=== PATIENT | female | born 1995 | race Hispanic/Latino ===

== ENCOUNTER 2018-11-04 17:21 | Emergency (ER) | payer OTHER, SELFPAY ==
[2018-11-04 18:16] LABS: #Lymphocytes 2.6 thou/uL (1.20-3.40); #Monocytes 0.5 thou/uL (0.11-0.59); %Basophils 0.6 % (0.0-1.0); %Eosinophils 0.6 % (0.0-10.0); %Monocytes 6.4 % (0.0-10.0); %Neutrophils 56.4 % (42.0-75.0); Hemoglobin 12.5 g/dL (12.0-16.0); Mean Corpuscular HGB CONC 35.3 g/dL (32.0-36.0); Mean Corpuscular Hemoglobin 31.6 pg (27.0-31.0); Mean Corpuscular Volume 89.3 fL (78.0-98.0); Mean Platelet Volume 8.5 fL (7.4-10.4); Platelet Count 204 thou/uL (130-400); RBC Distribution Width 12.4 % (11.5-14.5); Red Blood Cell (RBC) Count 3.97 mill/uL (4.20-5.40); White Blood Cell (WBC) Count 7.2 thou/uL (4.8-10.8)
[2018-11-04 18:18] LABS: Bilirubin Negative (Negative); Blood, Urine Negative (Negative); Clarity Clear (Clear); Glucose, Urine (Dipstick) Normal (Negative); Leukocyte Negative Leu/uL (Negative); Nitrite Negative (Negative); Protein, Urine (Dipstick) Negative (Neg-Trace); Urobilinogen Normal mg/dL (Less than 2)
[2018-11-04 18:33] LABS: ALT (SGPT) 18 U/L (8-55); AST (SGOT) 17 U/L (5-34); Albumin 4.6 g/dL (3.5-5.0); Alkaline Phosphatase 61 U/L (40-150); Anion Gap 11 mmol/L (10-20); BUN (Urea Nitrogen) 11 mg/dL (7.0-18.7); Bilirubin, Total 0.4 mg/dL (0.2-1.2); Calc. Creatinine Clearance 0 mL/min (70-130); Calcium 9.6 mg/dL (7.8-10.44); Carbon Dioxide 23 mmol/L (22-29); Chloride 104 mmol/L (98-107); Estimated GFR-MDRD Greater than 90; Globulin 2.9 g/dL (2.4-3.5); Glucose 84 mg/dL (70-105); Potassium 3.6 mmol/L (3.5-5.1); Protein, Total 7.5 g/dL (6.0-8.3); Sodium 134 mmol/L (136-145)
--- NOTE | 2018-11-04 19:33 | ULT ---
PELVIC ULTRASOUND: 11/04/18 Transabdominal and endovaginal ultrasound of pelvis performed. INDICATIONS: Pelvic pain. Early . FINDINGS: There is a gestational sac in the endometrial cavity. A yolk sac is identified. A tiny pole is seen with a crown-rump length indicating a 5 week, 6 day gestational age. cardiac activity is n ot confirmed with color Doppler with spectral analysis. Maternal ovaries are identified and appear unremarkable. Color Doppler with spectral analysis demonst rates flow to both ovaries. IMPRESSION: There is evidence of a gestational sac identified within the endometrial cavity. A tiny yolk sac iden tified. A tiny pole may be present. cardiac activity is not confirmed on this exam. Viabi lity is not confirmed. Recommend continued follow-up. Consider serial HCG levels and follow-up ultras ound as indicated. POS: NITA
== END 2018-11-04 20:09 | disposition home or self-care (01) ==
LOC: ERS 17:21
DX: O20.9 Hemorrhage in early pregnancy, unspecified (principal); Z3A.01 Less than 8 weeks gestation of pregnancy
CPT/HCPCS: 36415; 76856; 80053; 81003; 84702; 85025; 86900; 86901

== ENCOUNTER 2018-11-06 17:28 | Emergency (ER) | payer OTHER, SELFPAY | END 2018-11-06 19:13 | disposition home or self-care (01) | LOC: ERS 17:28 | DX: O20.0 Threatened abortion (principal); Z3A.01 Less than 8 weeks gestation of pregnancy | CPT/HCPCS: 36415; 84702; 99282 ==

== ENCOUNTER 2019-06-25 05:24 | Inpatient (IN) | payer OTHER ==
[2019-06-25] MEDS ORDERED: Butorphanol Tartrate 1 MG/ML VIAL ONE (05:55)
[2019-06-25] MEDS ORDERED: Methylergonovine 0.2 MG/ML VIAL IM PRN (06:05)
[2019-06-25] MEDS ORDERED: hydrALAZINE 20 MG/ML VIAL SLOW IVP PRN (06:05)
[2019-06-25] MEDS ORDERED: Docusate 100 MG CAP PO PRN (06:05)
[2019-06-25] MEDS ORDERED: Ondansetron PF 4 MG/2 ML Vial IVP PRN ×2 (06:05→07:57)
[2019-06-25] MEDS ORDERED: Ibuprofen 800 MG TAB PO PRN (06:05)
[2019-06-25] MEDS ORDERED: Promethazine HCl 25 MG/ML VIAL IM PRN ×2 (06:05→07:57)
[2019-06-25] MEDS ORDERED: Butorphanol Tartrate 1 MG/ML VIAL SLOW IVP PRN (06:05)
[2019-06-25] MEDS ORDERED: HYDROcodone/Acetaminophen 5/325 mg Tablet PO PRN ×2 (06:05)
[2019-06-25] MEDS ORDERED: Diphenoxylate HCl/Atropine Tablet PO PRN ×2 (06:05)
[2019-06-25] MEDS ORDERED: Lidocaine 1% (PF) 30 ML VIAL SC PRN (06:05)
[2019-06-25] MEDS ORDERED: NS / Oxytocin 40 units/1000ml 1,000 ML IV PRN (06:05)
[2019-06-25] MEDS ORDERED: Acetaminophen 500 MG TAB PO PRN (06:05)
[2019-06-25] MEDS ORDERED: Zolpidem Tartrate 5 MG TAB PO PRN (06:05)
[2019-06-25] MEDS ORDERED: Carboprost 250 MCG/ML AMP IM PRN (06:05)
[2019-06-25] MEDS ORDERED: Misoprostol 200 MCG TAB PR PRN (06:05)
[2019-06-25 06:09] VITALS: BMI 31.3
--- NOTE | 2019-06-25 06:10 | PDOC.LDHP ---
Labor and Delivery H&P HPI: 24 y/o at 38 and 4/7 weeks presents in labor with SROM. Trial of labor desired. Current gestational age (weeks): 38 Due date: 07/05/19 Grav: 1 Para: 0 Current complications: other (Mild Thrombocytopenia) Current medications: pre-cheryl vitamins Allergies/Adverse Reactions: Allergies Allergy/AdvReac Type Severity Reaction Status Date / Time No Known Allergies Allergy Verified 06/25/19 06:02 Social history: none - Physical Exam Vital signs reviewed and normal: yes General: NAD, resting Heart: RRR Lungs: CTAB Abdomen: NTTP Extremeties: no edema FHT: category 1 - Assessment L&D Assessment: term patient in labor - Plan Plan: admit to L&D
[2019-06-25] MEDS ORDERED: NS w/ Oxytocin 10 units 500 ML IV SCH (06:15)
[2019-06-25 06:20] LABS: Hemoglobin 13.3 g/dL (12.0-16.0); Mean Corpuscular HGB CONC 34.6 g/dL (32.0-36.0); Mean Corpuscular Hemoglobin 32.7 pg (27.0-31.0); Mean Corpuscular Volume 94.7 fL (78.0-98.0); Mean Platelet Volume 10.7 fL (7.4-10.4); Platelet Count 141 thou/uL (130-400); Red Blood Cell (RBC) Count 4.06 mill/uL (4.20-5.40); White Blood Cell (WBC) Count 11.1 thou/uL (4.8-10.8)
[2019-06-25] MEDS: Lactated Ringer's 1,000 ML IV SCH ×3 (06:22→17:33)
[2019-06-25] MEDS ORDERED: Fentanyl 4 mcg/Bup 0.1% Cadd 100 ML ONE ×2 (06:56→16:09)
[2019-06-25 06:59] LABS: HBSAg Index 0.23 S/CO (0-0.99); Hep B Surf Ag Non-Reactive S/CO (NonReactive); Syphilis Antibody Nonreactive (Nonreactive); Syphilis Antibody Index 0.04 S/CO (<1.00 Non-Reactive)
[2019-06-25] MEDS ORDERED: Acetaminophen 325 MG TAB PO PRN (07:57)
[2019-06-25] MEDS ORDERED: Lactated Ringer's 500 ML IV PRN (07:57)
[2019-06-25] MEDS ORDERED: Naloxone HCl 0.4 mg/ml Vial IVP PRN ×2 (07:57)
[2019-06-25] MEDS ORDERED: EPHEDRINE 25 MG/5 ML SYRINGE SLOW IVP PRN (07:57)
[2019-06-25] MEDS ORDERED: diphenhydrAMINE 50 MG/ML VIAL IVP PRN (07:57)
[2019-06-25] MEDS ORDERED: Communication Order-Pharmacy FS PRN (08:00)
[2019-06-25] MEDS ORDERED: Fentanyl 4 mcg/Bupivacaine 0.1% Cassette 100 ML EPIDURAL SCH (08:00)
[2019-06-25] MEDS: NS w/ Oxytocin 10 units 500 ML IV SCH (09:09)
[2019-06-25] MEDS ORDERED: Lidocaine 2% MPF 10 ML AMP (For Epidural Use) ONE (09:25)
[2019-06-25] MEDS ORDERED: Bicitra 30 ML UDCUP PO SCH (23:45)
[2019-06-25] MEDS ORDERED: Azithromycin 500 MG in Sodium Chloride 0.9% 250 ML 250 ML IVPB SCH (23:45)
[2019-06-25] MEDS ORDERED: CEFAZOLIN 2 GM in Premix Bag 1 BAG IVPB SCH (23:45)
[2019-06-25] MEDS ORDERED: Bicitra 30 ML UDCUP ONE (23:49)
[2019-06-26] MEDS ORDERED: Oxytocin 10 UNITS/ML VIAL ONE (00:02)
[2019-06-26] MEDS ORDERED: Ondansetron PF 4 MG/2 ML Vial ONE (00:02)
[2019-06-26] MEDS ORDERED: MORPHINE 5 MG/10 ML PF VIAL ONE (00:02)
[2019-06-26] MEDS ORDERED: L&D-Morphine 4 MG/ML VIAL SLOW IVP PRN (00:11)
[2019-06-26] MEDS ORDERED: HYDROmorphone 2 MG/ML VIAL SLOW IVP PRN (00:11)
[2019-06-26] MEDS ORDERED: Meperidine HCl/PF 25 MG/ML VIAL SLOW IVP PRN (00:11)
[2019-06-26] MEDS ORDERED: Ondansetron PF 4 MG/2 ML Vial IVP PRN (00:11)
[2019-06-26] MEDS ORDERED: Naloxone HCl 0.4 mg/ml Vial IVP PRN ×2 (00:11)
[2019-06-26] MEDS ORDERED: Promethazine HCl 25 MG/ML VIAL IM PRN ×2 (00:11→08:16)
[2019-06-26] MEDS ORDERED: Ondansetron HCl/PF 4 MG/2 ML Vial IVP PRN (00:11)
[2019-06-26] MEDS ORDERED: Naloxone HCl 0.4 mg/ml Vial IV PRN (00:11)
[2019-06-26] MEDS ORDERED: diphenhydrAMINE 50 MG/ML VIAL IVP PRN (00:11)
[2019-06-26] MEDS ORDERED: Promethazine HCl 25 MG SUPP PR PRN (00:11)
[2019-06-26] MEDS ORDERED: Communication Order-Pharmacy FS SCH (00:15)
[2019-06-26] MEDS ORDERED: Ketorolac Tromethamine 30 MG/ML VIAL IVP SCH (00:15)
[2019-06-26] MEDS ORDERED: Ketorolac Tromethamine 30 MG/ML VIAL ONE (03:08)
[2019-06-26] MEDS: Ketorolac Tromethamine 30 MG/ML VIAL IVP PRN ×2 (03:11→08:58)
[2019-06-26] MEDS: Lactated Ringer's 1,000 ML IV SCH (06:46)
[2019-06-26] MEDS: NS w/ Oxytocin 10 units 500 ML IV SCH (06:46)
[2019-06-26] MEDS ORDERED: Misoprostol 200 MCG TAB PR PRN (08:16)
[2019-06-26] MEDS ORDERED: hydrALAZINE 20 MG/ML VIAL SLOW IVP PRN (08:16)
[2019-06-26] MEDS ORDERED: Varicella virus, LIVE 0.5 ML VIAL SC ONE (08:16)
[2019-06-26] MEDS ORDERED: Measles/Mumps/Rubella 10 MCG/0.5 ML VIAL SC ONE (08:16)
[2019-06-26] MEDS ORDERED: Adacel (T-DAP) 0.5 ML SYRINGE IM ONE (08:16)
[2019-06-26] MEDS ORDERED: Lanolin Ointment 7 GM TUBE TOP PRN (08:16)
[2019-06-26] MEDS ORDERED: Methylergonovine 0.2 MG/ML VIAL IM PRN (08:16)
[2019-06-26] MEDS ORDERED: diphenhydrAMINE 25 MG CAP PO PRN (08:16)
[2019-06-26] MEDS ORDERED: Zolpidem Tartrate 5 MG TAB PO PRN (08:16)
[2019-06-26] MEDS ORDERED: NS / Oxytocin 40 units/1000ml 1,000 ML IV SCH (08:16)
[2019-06-26] MEDS: Prenatal Vitamin 1 TAB PO SCH (09:07)
[2019-06-26] MEDS: Docusate Calcium (SURFAK) 240 MG CAP PO SCH ×2 (09:07→21:30)
[2019-06-26] MEDS: Simethicone Chewable 80 MG TAB PO PRN ×2 (12:41→21:36)
[2019-06-26] MEDS: HYDROcodone/Acetaminophen 5/325 mg Tablet PO PRN ×3 (12:41→21:32)
[2019-06-26] MEDS: Ibuprofen 800 MG TAB PO SCH (15:32)
[2019-06-27] MEDS: HYDROcodone/Acetaminophen 5/325 mg Tablet PO PRN ×4 (01:26→20:30)
[2019-06-27] MEDS: Ibuprofen 800 MG TAB PO SCH ×3 (04:58→21:34)
[2019-06-27 05:58] LABS: Hemoglobin 8.9 g/dL (12.0-16.0); Mean Corpuscular HGB CONC 33.6 g/dL (32.0-36.0); Mean Corpuscular Volume 98.2 fL (78.0-98.0); Mean Platelet Volume 9.7 fL (7.4-10.4); Platelet Count 125 thou/uL (130-400); RBC Distribution Width 12.3 % (11.5-14.5); Red Blood Cell (RBC) Count 2.69 mill/uL (4.20-5.40); White Blood Cell (WBC) Count 18.7 thou/uL (4.8-10.8)
[2019-06-27] MEDS: Docusate Calcium (SURFAK) 240 MG CAP PO SCH ×2 (08:36→21:34)
[2019-06-27] MEDS: Simethicone Chewable 80 MG TAB PO PRN (08:36)
[2019-06-27] MEDS: Prenatal Vitamin 1 TAB PO SCH (08:36)
--- NOTE | 2019-06-27 13:13 | PDOC.PP ---
Post Progress Note Post Day #: 1 PO intake tolerated: yes Flatus: yes Ambulation: yes Vital Signs (12 hours) Temp Pulse Resp BP Pulse Ox 06/27/19 07:41 98.5 F 88 20 124/65 100 06/27/19 04:55 98.3 F 85 18 131/71 Weight Weight 155 lb - Physical Examination General: NAD Cardiovascular: no m/r/g, RRR Respiratory: clear to auscultation bilaterally, non-labored breathing Abdominal: + bowel sounds, lochia, no distention, appropriately TTP Extremities: negative homans (B) Skin: CS incision dry & intact, no rash Neurological: no gross focal deficits Psychiatric: A&Ox3, normal affect (DC tomorrow planned) Result Diagrams: 06/27/19 05:44 Additional Labs: Post Labs Blood Type A POSITIVE 06/25/19 06:10 Hep Bs Antigen Non-Reactive S/CO (NonReactive) 06/25/19 06:10
--- NOTE | 2019-06-27 20:34 | OP ---
DATE OF PROCEDURE: 06/26/2019 TIME: 0037 hours central daylight savings time. PREOPERATIVE DIAGNOSIS: Intrauterine at 38 weeks and four days with spontaneous onset of labor with spontaneous rupture of membranes, a trial of labor, and then failure to descend. POSTOPERATIVE DIAGNOSIS: Intrauterine at 38 weeks and four days with spontaneous onset of labor with spontaneous rupture of membranes, a trial of labor, and then failure to descend. PROCEDURE PERFORMED: Primary low-transverse section using a Pfannenstiel skin incision. FINDINGS: Viable male infant weighing 3322 g or 7 pounds 5 ounces. Apgars of 8 and 9. QUANTITATIVE BLOOD LOSS: 680 mL. COMPLICATIONS: None. DETAILS OF THE PROCEDURE: The patient was consented and taken back to the operating room where spinal anesthesia was found to be adequate. She was then prepped and draped in the normal sterile fashion. A timeout was performed by the entire operative team. The incision was then marked with a marking pen tested using sharp pickups. An incision was then made with a scalpel. The incision was carried through the adipose tissue down to the underlying rectus fascia using both sharp dissection as well as cautery. Once the fascia was identified, it was incised in the midline and then the fascial incision was carried through in both lateral directions using sharp as well as cautery dissection techniques. Next, the superior aspect of the rectus fascia was grasped with 2 Miroslava clamps, which was tented up and the rectus muscles were dissected off using blunt dissection as well as cautery dissection. Similarly, the inferior aspect of the fascial incision was grasped with 2 Miroslava clamps, tented up and the rectus muscles were dissected off bluntly as well as sharply. Next, the rectus muscles were in the midline and the peritoneum identified. The peritoneum was then carefully grasped with 2 hemostats and entered sharply. The peritoneal incision was extended superiorly and inferiorly and bladder blade was placed in the lower abdomen. At this point, the uterus was identified and the bladder flap was then developed using pickups with teeth as well as Metzenbaum scissors in both lateral directions. The bladder flap was then dissected downwards using the corn husker machine operator's finger as well as Metzenbaum scissors. The bladder blade was replaced. The lower uterine segment was then identified and entered sharply using a clean scalpel. The uterine incision was then dissected downwards until thin layer of muscle remained and this was entered bluntly using a hemostat to avoid any injury to the baby. The uterine incision was then stretched using two fingers in both lateral directions. An amniotomy was performed artificially using a hemostat and the baby was delivered using fundal pressure in a gentle fashion. Once out, the baby's mouth and nose were bulb suctioned, cord clamped and cut, and the baby was handed to waiting attendants. Next, the uterus was exteriorized, cleared of all clots and debris and the uterine incision was repaired with #1 Monocryl in a running locking fashion. A 2nd suture of the same type was used to obtain complete hemostasis at the uterine incision. The bladder flap was reapproximated using 3-0 Monocryl. Next, patient's left and right adnexa were inspected and appeared to be within normal limits. The posterior cul-de-sac was blotted dry and hemostasis assured. One more look at the uterine incision demonstrated hemostasis. Next, the uterus was replaced back within the abdomen. The peritoneum was reapproximated using 2-0 Monocryl without difficulty. The rectus muscles were then allowed to come back together and 0 chromic was used to aid in reapproximation of the muscle as necessary. The rectus fascia was then reapproximated in a running fashion using 0 Vicryl suture. The adipose tissue was then examined and appeared to be well approximated without any obvious separations. Finally, the skin was reapproximated with 3-0 Monocryl on a Wei needle without difficulty and Dermabond adhesive was applied to the skin. Once the glue was dry, the drapes were removed and the patient was transferred to an ambulatory bed where she was taken to recovery awake and in stable condition. Sponge, lap, and needle counts were correct x3. Job ID: [id number]
[2019-06-28] MEDS: HYDROcodone/Acetaminophen 5/325 mg Tablet PO PRN (01:09)
[2019-06-28] MEDS: Ibuprofen 800 MG TAB PO SCH (05:05)
[2019-06-28] MEDS: Prenatal Vitamin 1 TAB PO SCH (08:47)
[2019-06-28] MEDS: Docusate Calcium (SURFAK) 240 MG CAP PO SCH (08:47)
[2019-06-28 11:57] VITALS: BP 126/74; TEMP 98.1
== END 2019-06-28 13:35 | disposition home or self-care (01) | DRG 788 ==
LOC: L&D/OP 05:24 → L&D 07:04 → 3SW 06-26 04:21
PROVIDERS: ADMIT Obstetrics & Gynecology; ATTEND Obstetrics & Gynecology
PROC: 10D00Z1 Extraction of Products of Conception, Low, Open Approach (ICD-10-PCS; principal; 2019-06-26)
DX: O99.12 Other diseases of the blood and blood-forming organs and certain disorders involving the immune mechanism complicating childbirth (principal); D69.6 Thrombocytopenia, unspecified; Z3A.38 38 weeks gestation of pregnancy; Z37.0 Single live birth; O66.40 Failed trial of labor, unspecified
CPT/HCPCS: 36415; 51702; 85027; 86780; 86850; 86900; 86901; 87340; 90715; 99285; J0595; J0690; J1885; J2001; J2210; J2274; J2405; J2590

== ENCOUNTER 2020-12-09 11:12 | Observation (INO) | payer OTHER ==
[~2020-12-09 11:12] MED LIST: Iopamidol-370 76% 500 ML 1 ML ONE
[2020-12-09 11:43] LABS: #Monocytes 0.3 thou/uL (0.11-0.59); #Neutrophils 12.2 thou/uL (1.40-6.50); %Basophils 0.1 % (0.0-1.0); %Eosinophils 0.1 % (0.0-10.0); %Lymphocytes 7.1 % (21.0-51.0); %Monocytes 1.9 % (0.0-10.0); %Neutrophils 90.8 % (42.0-75.0); Mean Corpuscular Volume 91.3 fL (78.0-98.0); Platelet Count 200 thou/uL (130-400); RBC Distribution Width 11.3 % (11.5-14.5); Red Blood Cell (RBC) Count 4.07 mill/uL (4.20-5.40); White Blood Cell (WBC) Count 13.4 thou/uL (4.8-10.8)
[2020-12-09 12:18] LABS: ALT (SGPT) 20 U/L (8-55); AST (SGOT) 18 U/L (5-34); Albumin 4.4 g/dL (3.5-5.0); Alkaline Phosphatase 66 U/L (40-110); Anion Gap 16 mmol/L (10-20); BUN (Urea Nitrogen) 11 mg/dL (7.0-18.7); Bilirubin, Total 0.6 mg/dL (0.2-1.2); Calc. Creatinine Clearance 0 mL/min (70-130); Calcium 9.6 mg/dL (7.8-10.44); Carbon Dioxide 19 mmol/L (22-29); Chloride 103 mmol/L (98-107); Globulin 3.3 g/dL (2.4-3.5); Glucose 168 mg/dL (70-105); Potassium 3.4 mmol/L (3.5-5.1); Protein, Total 7.7 g/dL (6.0-8.3); Sodium 135 mmol/L (136-145)
[2020-12-09] MEDS ORDERED: Ondansetron PF 4 MG/2 ML Vial ONE ×2 (12:36→16:55)
[2020-12-09] MEDS ORDERED: Morphine 4 MG/ML VIAL ONE ×2 (12:36→16:17)
[2020-12-09 12:45] LABS: BHCG - Serum Negative (NEGATIVE); Pregs Control Background? CLEAR/WHITE (CLR/WHITE); Pregs Control Bar Appear? YES (CONTROL BAR)
[2020-12-09 13:00] LABS: Bacteria/HPF None Seen HPF (None Seen); Bilirubin Negative (Negative); Blood, Urine Negative (Negative); Clarity Clear (Clear); Glucose, Urine (Dipstick) Normal (Negative); Ketone, Urine 60 mg/dL (Negative); Leukocyte 250 Leu/uL (Negative); Nitrite Negative (Negative); Pregnancy Test - Urine (BHCG) Negative (Negative); Pregu Control Background? CLEAR/WHITE (CLR/WHITE); Pregu Control Bar Appear? YES (CONTROL BAR); Protein, Urine (Dipstick) Negative (Neg-Trace); RBC/HPF 0-3 HPF (0-3); Specific Gravity 1.023 (1.002-1.036); Specific Gravity, Urine 1.023 (1.002-1.036); Squamous Epithelial 0-3 HPF (0-3); Urobilinogen Normal mg/dL (Less than 2); pH, Urine 6.5 (5.0-9.0)
[2020-12-09] MEDS ORDERED: Ketorolac Tromethamine 30 MG/ML VIAL ONE (13:27)
[2020-12-09] MEDS ORDERED: Dicyclomine 20 MG TAB ONE (14:14)
[2020-12-09] MEDS ORDERED: Magnesium Citrate 300 ML BOT ONE (15:26)
[2020-12-09] MEDS ORDERED: Ondansetron ODT 4 MG TAB PO PRN (15:49)
[2020-12-09] MEDS ORDERED: hydrALAZINE 20 MG/ML VIAL SLOW IVP PRN (15:49)
[2020-12-09] MEDS ORDERED: Morphine 2 MG/ML VIAL SLOW IVP PRN (15:49)
[2020-12-09] MEDS ORDERED: Ketorolac Tromethamine 30 MG/ML VIAL IVP PRN (15:54)
[2020-12-09] MEDS ORDERED: Acetaminophen 500 MG TAB PO PRN (15:54)
[2020-12-09] MEDS ORDERED: Ketorolac Tromethamine 30 MG/ML VIAL IVP SCH (16:00)
[2020-12-09 17:41] VITALS: BMI 26.4
[2020-12-09] MEDS: D5 1/2 NS w/20 mEq KCL 1,000 ML IV SCH (18:01)
[2020-12-09] MEDS ORDERED: Enoxaparin Sodium 40 MG/0.4 ML SYRINGE SC SCH (21:00)
[2020-12-09 21:11] LABS: SARS-CoV-2 NAA Rapid Test Not Detected (NotDetected)
[2020-12-09] MEDS: Morphine 4 MG/ML VIAL SLOW IVP PRN (22:05)
[2020-12-10] MEDS: D5 1/2 NS w/20 mEq KCL 1,000 ML IV SCH ×2 (02:36→08:03)
[2020-12-10] MEDS: Morphine 4 MG/ML VIAL SLOW IVP PRN ×3 (02:38→08:02)
[2020-12-10 07:38] LABS: #Lymphocytes 1.1 thou/uL (1.20-3.40); #Monocytes 1.2 thou/uL (0.11-0.59); #Neutrophils 14.9 thou/uL (1.40-6.50); %Eosinophils 0.1 % (0.0-10.0); %Lymphocytes 6.5 % (21.0-51.0); %Monocytes 7.2 % (0.0-10.0); %Neutrophils 86.2 % (42.0-75.0); Hemoglobin 11.6 g/dL (12.0-16.0); Mean Corpuscular HGB CONC 34.6 g/dL (32.0-36.0); Mean Corpuscular Volume 92.5 fL (78.0-98.0); Mean Platelet Volume 9.1 fL (7.4-10.4); Platelet Count 153 thou/uL (130-400); RBC Distribution Width 11.6 % (11.5-14.5); Red Blood Cell (RBC) Count 3.63 mill/uL (4.20-5.40); White Blood Cell (WBC) Count 17.2 thou/uL (4.8-10.8)
[2020-12-10] MEDS ORDERED: Scopolamine 1.5 mg/72 hour Patch TOP SCH (09:00)
[2020-12-10] MEDS ORDERED: Meropenem 2 GM in Sodium Chloride 0.9% 100 ML IVPB SCH (09:00)
[2020-12-10] MEDS ORDERED: Polyethylene Glycol 3350 17 GM Packet PO SCH (09:00)
[2020-12-10] MEDS ORDERED: Bupivacaine 0.25% HCL 30 ML VIAL ONE (09:26)
[2020-12-10] MEDS ORDERED: Lidocaine 1% w/Epinephrine 1:100K 20 ML VIAL ONE (09:26)
[2020-12-10] MEDS ORDERED: Bupivacaine PF 0.5% 30 ML VIAL ONE (09:57)
[2020-12-10] MEDS ORDERED: Famotidine/PF 20 mg/2ml Vial ONE (11:34)
[2020-12-10] MEDS ORDERED: Fentanyl 100 MCG/2 ML VIAL ONE ×3 (11:34→13:06)
[2020-12-10] MEDS ORDERED: Lidocaine 1% PF 5 ML VIAL ONE (11:44)
[2020-12-10] MEDS ORDERED: Metoclopramide HCl 10 MG/2 ML VIAL ONE (11:44)
[2020-12-10] MEDS ORDERED: Dexamethasone 20 MG/5 ML VIAL ONE (11:44)
[2020-12-10] MEDS ORDERED: PHENYLEPHRINE-NS 100 MCG/ML 10 ML SYRINGE ONE (11:44)
[2020-12-10] MEDS ORDERED: ePHEDrine 50 MG/ML VIAL ONE (11:44)
[2020-12-10] MEDS ORDERED: Succinylcholine 200 MG/10 ml SYRINGE FS ONE (11:44)
[2020-12-10] MEDS ORDERED: Glycopyrrolate 0.2 MG/ML 5 ML SYRINGE ONE (11:44)
[2020-12-10] MEDS ORDERED: Rocuronium Bromide 10 MG/ML (10ML VIAL) ONE (11:44)
[2020-12-10] MEDS ORDERED: PROPOFOL 200 MG/20 ML VIAL ONE (11:44)
[2020-12-10] MEDS ORDERED: HYDROmorphone 2 MG/ML VIAL ONE (12:14)
[2020-12-10] MEDS ORDERED: traMADol HCl 50 MG TAB PO PRN (12:37)
[2020-12-10] MEDS ORDERED: Ibuprofen 600 MG TAB PO PRN (12:37)
[2020-12-10] MEDS ORDERED: Acetaminophen 500 MG TAB PO PRN (12:38)
[2020-12-10 16:11] VITALS: BP 119/69; TEMP 98.2
[2020-12-10] MEDS ORDERED: FLU VACC QS2021-22(6MOS UP)/PF 60 MCG/0.5 ML SYRINGE IM ONE (18:00)
== END 2020-12-10 16:50 | disposition home or self-care (01) ==
LOC: ERS 11:12 → T4-B 15:55
PROVIDERS: ADMIT Specialist; ATTEND Specialist
PROC: 0DTJ4ZZ Resection of Appendix, Percutaneous Endoscopic Approach (ICD-10-PCS; principal; 2020-12-10)
DX: K35.80 Unspecified acute appendicitis (principal); Z20.822 Contact with and (suspected) exposure to COVID-19
CPT/HCPCS: 36415; 74177; 76856; 80053; 81003; 81015; 81025; 83605; 83690; 84703; 85025; 88304; 96372; 96374; 96375; 96376; G0378; J1100; J1170; J1650; J1885; J2185; J2270; J2405; J2704; J2765; J3010; J3480; J3490; Q9967; S0020; S0028; U0002

== ENCOUNTER 2021-07-20 14:59 | Emergency (ER) | payer OTHER ==
[2021-07-20 15:58] LABS: #Eosinphils 0.1 thou/uL (0.0-0.7); #Lymphocytes 1.6 thou/uL (1.20-3.40); #Monocytes 0.3 thou/uL (0.11-0.59); #Neutrophils 3.8 thou/uL (1.40-6.50); %Basophils 0.1 % (0.0-1.0); %Eosinophils 0.9 % (0.0-10.0); %Lymphocytes 27.7 % (21.0-51.0); %Monocytes 5.1 % (0.0-10.0); %Neutrophils 66.2 % (42.0-75.0); Hemoglobin 12.6 g/dL (12.0-16.0); Mean Corpuscular HGB CONC 33.6 g/dL (32.0-36.0); Mean Corpuscular Hemoglobin 32.2 pg (27.0-31.0); Mean Corpuscular Volume 95.8 fL (78.0-98.0); Mean Platelet Volume 8.4 fL (7.4-10.4); Platelet Count 186 thou/uL (130-400); RBC Distribution Width 12.2 % (11.5-14.5); Red Blood Cell (RBC) Count 3.91 mill/uL (4.20-5.40); White Blood Cell (WBC) Count 5.7 thou/uL (4.8-10.8)
[2021-07-20 15:59] LABS: BHCG - Serum Negative (NEGATIVE); Pregs Control Background? CLEAR/WHITE (CLR/WHITE); Pregs Control Bar Appear? YES (CONTROL BAR)
[2021-07-20 16:18] LABS: ALT (SGPT) 16 U/L (8-55); AST (SGOT) 16 U/L (5-34); Albumin 4.1 g/dL (3.5-5.0); Alkaline Phosphatase 59 U/L (40-110); Anion Gap 11 mmol/L (10-20); BUN (Urea Nitrogen) 13 mg/dL (7.0-18.7); Bilirubin, Total 0.3 mg/dL (0.2-1.2); Calc. Creatinine Clearance 0 mL/min (70-130); Calcium 8.7 mg/dL (7.8-10.44); Carbon Dioxide 26 mmol/L (22-29); Chloride 107 mmol/L (98-107); Globulin 3.1 g/dL (2.4-3.5); Glucose 91 mg/dL (70-105); Potassium 4.1 mmol/L (3.5-5.1); Protein, Total 7.2 g/dL (6.0-8.3); Sodium 140 mmol/L (136-145)
[2021-07-20 16:38] LABS: Bacteria/HPF None Seen HPF (None Seen); Bilirubin Negative (Negative); Blood, Urine 1+ (Negative); Clarity Clear (Clear); Glucose, Urine (Dipstick) Normal (Negative); Ketone, Urine Negative (Negative); Leukocyte Negative Leu/uL (Negative); Nitrite Negative (Negative); Protein, Urine (Dipstick) Negative (Neg-Trace); RBC/HPF 0-3 HPF (0-3); Specific Gravity, Urine 1.015 (1.002-1.036); Squamous Epithelial None Seen HPF (0-3); Urobilinogen Normal mg/dL (Less than 2); WBC/HPF 0-3 HPF (0-3)
== END 2021-07-20 18:44 | disposition home or self-care (01) ==
LOC: ERS 14:59
DX: N92.0 Excessive and frequent menstruation with regular cycle (principal)
CPT/HCPCS: 36415; 80053; 81003; 81015; 84703; 85025; 99284